=== PATIENT | male | born 1955 | race Caucasian/White ===

== ENCOUNTER 2020-09-23 15:47 | Emergency (ER) | payer OTHER ==
[~2020-09-23] VITALS: Ht 190.5 cm; Wt 125.0 kg
[2020-09-23] MEDS ORDERED: SIMVASTATIN (16:15)
--- NOTE | 2020-09-23 16:15 | NUR ---
PT BIBA FROM WORK, FOR C/O DIZZINESS, AND ONE EPISODE OF DIARRHEA AND NAUSEA. PT PLACED ON ALL MONITORS. RECEIVED 4MG IV ZOFRAN AND 250ML NS, PT REPORTS ZOFRAN HELPED.
[2020-09-23] MEDS ORDERED: ONDANSETRON 2MG/ML, 2ML IVPush ONE (17:30)
[2020-09-23] MEDS ORDERED: MECLIZINE CHEWABLE 25 MG TAB PO ONE (17:30)
[2020-09-23] MEDS ORDERED: ONDANSETRON 2MG/ML, 2ML ONE (17:33)
[2020-09-23] MEDS ORDERED: MECLIZINE CHEWABLE 25 MG TAB ONE (17:33)
[2020-09-23 17:38] VITALS: BP 135/78
--- NOTE | 2020-09-23 17:39 | NUR ---
PT MEDS PER MAR, DENIES DIZZY BUT STILL NAUSOUS. AWAITING CT RESTULTS. CALL [facility] IN REACH. PT NOTED TO BE 88 % RA, WHEN SPEAKING IS STILL LOW 90S. DENIES SMOKING/SOB/COUGH/RECENT ILLNESS. PLACED ON 2LNC W IMPROVEMENT TO 96%.
== END 2020-09-23 19:15 | disposition home or self-care (01) ==
LOC: ED 17:56
DX: H81.399 Other peripheral vertigo, unspecified ear (principal); E78.5 Hyperlipidemia, unspecified; H92.01 Otalgia, right ear; R11.0 Nausea
CPT/HCPCS: 70450; 93005; 96374; 99284; J2405